=== PATIENT | female | born 1955 | race Caucasian/White ===

== ENCOUNTER → 2024-09-20 | Outpatient (REF) | payer MEDICARE ==
[~2024-09-20] MED LIST: ANTARA43 MG PO; ATENOLOL50 MG PO; BENICAR20 MG PO; BUDEPRION SR150 MG PO; FLEXERIL10 MG PO; IMITREX100 MG PO; PANTOPRAZOLE SO20 MG PO
== END ==
LOC: NM 09:01
PROVIDERS: ATTEND Physician Assistant Medical
DX: R11.2 Nausea with vomiting, unspecified (principal); R10.13 Epigastric pain; R14.0 Abdominal distension (gaseous); K58.1 Irritable bowel syndrome with constipation; I10 Essential (primary) hypertension; Z68.30 Body mass index [BMI] 30.0-30.9, adult; Z71.3 Dietary counseling and surveillance; Z78.9 Other specified health status
CPT/HCPCS: 78264; A9541